=== PATIENT | male | born 1980 | race Caucasian/White ===

== ENCOUNTER 2017-05-14 20:07 | Emergency (ER) | payer SELFPAY ==
[~2017-05-14] VITALS: Ht 172.7 cm; Wt 71.0 kg
[2017-05-14] VITALS (7 sets, daily range): BP systolic 136–173; BP diastolic 82–109; PULSE 76–103; RESP 18; TEMP 98.1; O2SAT 99–100
[~2017-05-14 20:07] MED LIST: PERC10TA27 PO; PERC5TAB12 PO; TAMS0.4C67 PO; ZOFR4TAB3 SL
[2017-05-14] MEDS ORDERED: SODIUM CHLORIDE 0.9% FLUSH 10 ML FLUSH IVF PRN (21:15)
--- NOTE | 2017-05-14 21:18 | PD ---
HPI Chief Complaint: Chest Pain Time Seen by Provider: 21:14 Travel History International Travel<30 days: No Contact w/Intl Traveler<30days: No Traveled to known affect area: No History of Present Illness HPI The patient is a 36-year-old male with no known history of heart disease who complains of chest pain lasting about 15 minutes at a time on and off for 2 weeks. He has had 5-6 such episodes in these last 2 weeks. The pain is located in the left anterior chest and is not associated with nausea, diaphoresis or shortness of breath. He states he does have some numbness and tingling in his left arm. He denies any syncopal or near syncopal spells. He denies any palpitations. The patient does state, he states he used to be a heavy smoker of cigarettes. He states his blood pressures been elevated when they checked it. PFSH Past Medical History Cardiovascular Problems: Yes (HTN) Diminished Hearing: No Hypertension: Yes (Reported history) Kidney Stones: Yes Immunizations Current: Yes Influenza Vaccination: No Past Surgical History Surgical History: No Previous Surgery Social History Alcohol Use: Yes (occas. beer) Tobacco Use: Yes (1/2 pack per day) Substance Use: No Allergies-Medications (Allergen,Severity, Reaction): Coded Allergies: No Known Allergies (Verified Adverse Reaction, Unknown, 05/14/17) Reported Meds & Prescriptions Reported Meds & Active Scripts Active Review of Systems Except as stated in HPI: all other systems reviewed are Neg Physical Exam Narrative GENERAL: The patient is alert, oriented 3 in no apparent distress. His vital signs show blood pressure 130/91 with a heart rate of 103 but otherwise normal. When I see the patient is heart rate is in the mid 80s. SKIN: Focused skin assessment warm/dry. HEAD: Atraumatic. Normocephalic. EYES: Pupils equal and round. No scleral icterus. No injection or drainage. ENT: No nasal bleeding or discharge. Mucous membranes pink and moist. NECK: Trachea midline. No JVD. CARDIOVASCULAR: Regular rate and rhythm. No murmur appreciated. RESPIRATORY: No accessory muscle use. Clear to auscultation. Breath sounds equal bilaterally. GASTROINTESTINAL: Abdomen soft, non-tender, nondistended. Hepatic and splenic margins not palpable. MUSCULOSKELETAL: No obvious deformities. No clubbing. No cyanosis. No edema. NEUROLOGICAL: Awake and alert. No obvious cranial nerve deficits. Motor grossly within normal limits. Normal speech. PSYCHIATRIC: Appropriate mood and affect; insight and judgment normal. Data Data Last Documented VS Vital Signs Date Time Temp Pulse Resp B/P (MAP) Pulse Ox O2 Delivery O2 Flow Rate FiO2 05/14/17 21:44 76 18 136/82 (100) 99 Room Air 05/14/17 20:10 98.1 Orders Orders Electrocardiogram (05/14/17 21:14) Complete Blood Count With Diff (05/14/17 21:14) Comprehensive Metabolic Panel (05/14/17 21:14) Magnesium (Mg) (05/14/17 21:14) Troponin I (05/14/17 21:14) Ecg Monitoring (05/14/17 21:14) Iv Access Insert/Monitor (05/14/17 21:14) Oximetry (05/14/17 21:14) Oxygen Administration (05/14/17 21:14) Sodium Chloride 0.9% Flush (Ns Flush) (05/14/17 21:15) Chest, Pa & Lat (05/14/17 21:14) Labs Laboratory Tests Test 05/14/17 21:20 White Blood Count 9.1 TH/MM3 Red Blood Count 5.20 MIL/MM3 Hemoglobin 15.2 GM/DL Hematocrit 44.2 % Mean Corpuscular Volume 85.0 FL Mean Corpuscular Hemoglobin 29.3 PG Mean Corpuscular Hemoglobin Concent 34.4 % Red Cell Distribution Width 13.4 % Platelet Count 271 TH/MM3 Mean Platelet Volume 9.2 FL Neutrophils (%) (Auto) 61.4 % Lymphocytes (%) (Auto) 28.5 % Monocytes (%) (Auto) 7.0 % Eosinophils (%) (Auto) 1.9 % Basophils (%) (Auto) 1.2 % Neutrophils # (Auto) 5.6 TH/MM3 Lymphocytes # (Auto) 2.6 TH/MM3 Monocytes # (Auto) 0.6 TH/MM3 Eosinophils # (Auto) 0.2 TH/MM3 Basophils # (Auto) 0.1 TH/MM3 CBC Comment DIFF FINAL Differential Comment Blood Urea Nitrogen 15 MG/DL Creatinine 0.91 MG/DL Random Glucose 93 MG/DL Total Protein 7.3 GM/DL Albumin 4.2 GM/DL Calcium Level 8.6 MG/DL Magnesium Level 2.0 MG/DL Alkaline Phosphatase 122 U/L Aspartate Amino Transf (AST/SGOT) 13 U/L Alanine Aminotransferase (ALT/SGPT) 18 U/L Total Bilirubin 0.2 MG/DL Sodium Level 139 MEQ/L Potassium Level 3.4 MEQ/L Chloride Level 101 MEQ/L Carbon Dioxide Level 30.3 MEQ/L Anion Gap 8 MEQ/L Estimat Glomerular Filtration Rate 95 ML/MIN Troponin I LESS THAN 0.02 NG/ML MDM Medical Decision Making Medical Screen Exam Complete: Yes Emergency Medical Condition: Yes Medical Record Reviewed: Yes Interpretation(s) The EKG shows sinus rhythm with a rate of [address] elevation or depression. The CBC is normal. The complete metabolic profile shows an alkaline phosphatase of 122 and potassium 3.4 but is otherwise unremarkable. The magnesium is normal and the troponin I is normal. The chest x-ray is normal. Differential Diagnosis Chest wall pain, pleuritic pain, gastrointestinal pain, esophageal pain, atypical chest pain, acute coronary syndrome-unlikely, pulmonary embolus- extremely unlikely Narrative Course The patient appears to have atypical chest pain. He was offered a stress test but declined. It was explained that a stress test is predictive and our lab testing is not predictive but he still declined the stress test. Diagnosis Primary Impression: Chest pain of unknown etiology Additional Instructions: As we discussed, a stress test is a predictive test and can predict heart problems as far out as possibly 2 years. Follow-up with your primary care physician and discuss a stress test with him. We offered you a stress test tomorrow morning. Med/Other Pt SpecificInfo: Prescription(s) given Scripts Ibuprofen (Ibuprofen) 800 Mg Tab 800 MG PO TID, #33 TAB 0 Refills Prov: David Wilson MD 05/14/17 Disposition: DISCHARGE HOME Condition: Stable David Wilson MD May 14, 2017 21:18
[2017-05-14 21:36] LABS: AUTOMATED NEUTROPHIL # 5.6 TH/MM3 (1.8-7.7); BASOPHIL # 0.1 TH/MM3 (0-0.2); BASOPHIL % 1.2 % (0.0-2.0); EOSINOPHIL # 0.2 TH/MM3 (0-0.4); EOSINOPHIL % 1.9 % (0.0-4.0); HEMATOCRIT 44.2 % (39.0-51.0); HEMOGLOBIN 15.2 GM/DL (13.0-17.0); LYMPH % 28.5 % (9.0-44.0); LYMPHOCYTE # 2.6 TH/MM3 (1.0-4.8); MEAN CORPUSCULAR HEMOGLOBIN 29.3 PG (27.0-34.0); MEAN CORPUSCULAR HGB CONC 34.4 % (32.0-36.0); MEAN PLATELET VOLUME 9.2 FL (7.0-11.0); MONOCYTE # 0.6 TH/MM3 (0-0.9); NEUT % 61.4 % (16.0-70.0); PLATELET COUNT 271 TH/MM3 (150-450); RED CELL DISTRIBUTION WIDTH 13.4 % (11.6-17.2); WHITE BLOOD COUNT 9.1 TH/MM3 (4.0-11.0)
[2017-05-14 21:45] LABS: CHLORIDE 101 MEQ/L (98-107); SODIUM (NA) 139 MEQ/L (136-145)
[2017-05-14 21:48] LABS: CALCIUM 8.6 MG/DL (8.5-10.1)
[2017-05-14 21:49] LABS: ALBUMIN 4.2 GM/DL (3.4-5.0); BICARBONATE 30.3 MEQ/L (21.0-32.0); BLOOD UREA NITROGEN 15 MG/DL (7-18); GLUCOSE,RANDOM 93 MG/DL (74-106)
[2017-05-14 21:52] LABS: ALT (GPT) 18 U/L (12-78); AST (GOT) 13 U/L (15-37); CREATININE 0.91 MG/DL (0.60-1.30); GLOMERULAR FILTRATION RATE 95 ML/MIN (>89)
[2017-05-14 21:53] LABS: TOTAL BILIRUBIN ADULT 0.2 MG/DL (0.2-1.0); TOTAL PROTEIN 7.3 GM/DL (6.4-8.2)
[2017-05-14 21:54] LABS: ALKALINE PHOSPHATASE 122 U/L (45-117)
[2017-05-14 21:57] LABS: TROPONIN I LESS THAN 0.02 NG/ML (0.02-0.05)
--- NOTE | 2017-05-14 22:06 | RADRPT ---
EXAM DATE/TIME: 05/14/2017 21:37 [facility] COMPARISON: No previous studies available for comparison. INDICATIONS : Chest pain. MEDICAL HISTORY : None. SURGICAL HISTORY : None. ENCOUNTER: Initial ACUITY: 2 weeks PAIN SCORE: 7/10 LOCATION: Bilateral chest FINDINGS: PA and lateral views of the chest demonstrate the lungs to be symmetrically aerated without evidence of mass, infiltrate or effusion. The cardiomediastinal contours are unremarkable. Osseous structur es are intact. CONCLUSION: The lungs are clear.. Kenny Alexander MD on May 14, 2017 at 22:04 Board Certified Radiologist. This report was verified electronically.
[2017-05-14] MEDS ORDERED: IBUP1TAB7 PO (22:46)
--- NOTE | 2017-05-16 00:06 | EKG ---
Date Performed: 05/14/2017 Time Performed: 21:20:28 PTAGE: 36 years EKG: Sinus rhythm NONSPECIFIC T-WAVE ABNORMALITY BORDERLINE ECG NO PREVIOUS TRACING DOCTOR: Yobany Gonzalez Interpretating Date/Time 05/16/2017 00:05:43
== END 2017-05-14 23:06 | disposition home or self-care (01) ==
LOC: PHED 20:07
DX: R07.9 Chest pain, unspecified (principal); R94.31 Abnormal electrocardiogram [ECG] [EKG]; F17.210 Nicotine dependence, cigarettes, uncomplicated
CPT/HCPCS: 71046; 80053; 83735; 84484; 85025; 93005; 99285